=== PATIENT | female | born 1935 | race Two or more races ===

== ENCOUNTER 2025-03-27 09:01 | Outpatient (CLI) | payer OTHER | END 2025-03-27 09:06 | disposition home or self-care (01) | LOC: TOM 09:01 | PROVIDERS: ATTEND Internal Medicine Gastroenterology | DX: R19.5 Other fecal abnormalities (principal); I70.90 Unspecified atherosclerosis; K57.30 Diverticulosis of large intestine without perforation or abscess without bleeding; K21.9 Gastro-esophageal reflux disease without esophagitis; Z86.0100 Personal history of colon polyps, unspecified ==